=== PATIENT | female | born 2000 | race Two or more races ===

== ENCOUNTER 2019-12-10 16:16 | Emergency (ER) | payer OTHER ==
[2019-12-10 16:27] VITALS: BP 124/76; PULSE 96; TEMP 99.2; BMI 22.8
--- OUTSIDE RECORDS SUMMARY | 2019-12-10 17:12 | XMS ---
:2000 Author Organization [facility] Care Team Providers Name Role Phone KENNETH MCKENZIE Unavailable Unavailable Re-disclosure Warning The records that you are about to access may contain information from federally- assisted alcohol or drug abuse programs. If such information is present, then the following federally mandated warning applies: This information has been disclosed to you from records protected by federal confidentiality rules (42 CFR part 2). The federal rules prohibit you from making any further disclosure of this information unless further disclosure is expressly permitted by the written consent of the person to whom it pertains or as otherwise permitted by 42 CFR part 2. A general authorization for the release of medical or other information is NOT sufficient for this purpose. The Federal rules restrict any use of the information to criminally investigate or prosecute any alcohol or drug abuse patient.The records that you are about to access may contain highly sensitive health information, the redisclosure of which is protected by Article 27-F of the [facility] Public Health law. If you continue you may haveaccess to information: Regarding HIV / AIDS; Provided by facilities licensed or operated by the [facility] Office of Mental Health; or Provided by the [facility] Office for People With Developmental Disabilities. If such information is present, then the following [facility] mandated warning applies: This information has been disclosed to you from confidential records which are protected by state law. State law prohibits you from making any further disclosure of this information without the specific written consent of the person to whom it pertains, or as otherwise permitted by law. Any unauthorized further disclosure in violation of state law may result in a fine or [place] [facility] sentence or both. A general authorization for the release of medical or other information is NOT sufficient authorization for further disclosure. Encounters Encounter Providers Location Date Indications Data Source(s ) Outpatient Attender: KENNETH Leti 11/14/2018 [facility] [place] 03:13:00 [facility] KENNETHAdmitter: EDT KENNETH LUIS KENNETH Insurance Providers Payer name Policy type Policy ID Covered Covered constitution party's Policy P [place] / Coverage constitution party ID relationship to [employer] Inf ormation type sesay [place] [id number] [place] [id number] HMO O MVP/HHP O [id number] Problems, Conditions, and Diagnoses Code Display Name Description Problem Type Effective Dates Data Source(s) M54.5 Low back pain LOW BACK PAIN Diagnosis 11/14/2018 03:13:00 [facility] EDT [facility] Results ID Date Data Source [id number] 12/05/2019 10:00:00 PM EDT [facility] Name Value Range Interpretation Code Description Data Marielena rce(s) Supporting Document(s ) SARS-CoV-2 [facility] BY PCR This lab was ordered by TAY Parmar and reported by [facility]. Procedure
--- NOTE | 2019-12-10 17:19 | PDOC ---
History of Present Illness - General Chief Complaint: Chest Pain Stated Complaint: CHEST PAIN Time Seen by Provider: 12/10/19 16:35 History Source: Patient Exam Limitations: No Limitations - History of Present Illness Initial Comments: 12/10/19 17:14 Patient is a 19-year-old female with no past medical history who presents the ED with complaint of squeezing intermittent left chest pain that started yesterday after an endoscopy. The patient states that after the endoscopy she was cleared to go eat something and after she did she started to feel pain in her left chest. She states the pain is squeezing-like in nature and lasts a few minutes at a time. It waxes and wanes. She does admit to feeling short of breath when the pain happens. She states she was not given the results of the endoscopy. The patient states that she has had musculoskeletal chest pain in the past but it felt different. Today, when she woke up, she ate a soft breakfast cake for breakfast and states the pain again started immediately thereafter. She has not spoken to Dr. Munguia, who did her endoscopy yesterday. Past History - Medical History Allergies/Adverse Reactions: Allergies Allergy/AdvReac Type Severity Reaction Status Date / Time No Known Allergies Allergy Verified 12/10/19 17:09 COPD: No - Reproductive History Is Patient Now?: No - Psycho-Social/Smoking History Smoking History: Never smoked Have you smoked in the past 12 months: No - Substance Abuse Hx (Audit-C & DAST Scrn) How often the patient has a drink containing alcohol: Never Score: In Men: 4 or > Positive; In Women: 3 or > Positive: 0 Screen Result (Pos requires Nsg. Audit-10AR): Negative In the last yr the pt used illegal drug/Rx for NonMed reason: No Score: Yes response is considered Positive: 0 Screen Result (Positive result requires Nsg. DAST-10): Negative Review of Systems - Review of Systems Comments:: 12/10/19 17:19 - Review of Systems Able to Perform ROS?: Yes Constitutional: No: Fever, Chills, Loss of Appetite, Night Sweats, Weakness HEENTM: No: Eye Pain, Vision changes, Ear Pain, Throat Pain, Throat Swelling, Mouth Pain, Difficulty Swallowing Respiratory: No: Cough, Shortness of Breath, Wheezing, Sputum Production Cardiac (ROS): No: Chest Pain, Chest Tightness, Palpitations, Irregular Heart Beat, Edema; positive: Intermittent left chest squeezing-like pain ABD/GI: No: Nausea, Vomiting, Abdominal Pain, Diarrhea : No Dysuria, No Hematuria, No Frequency, No Urgency Musculoskeletal: No: Muscle Pain, Back Pain, Joint Pain, Muscle Weakness, Neck Pain Integumentary: No: Lesions, Rash Neurological: No: Headache, Numbness, Tingling, Weakness, Speech Difficulties *Physical Exam - Vital Signs Last Vital Signs Temp Pulse Resp BP Pulse Ox 99.2 F 96 H 18 124/76 100 12/10/19 16:21 12/10/19 16:21 12/10/19 16:21 12/10/19 16:21 12/10/19 16:21 - Physical Exam 12/10/19 17:20 - Physical Exam General Appearance: Nourished, Appropriately Dressed, No Distress HEENT: EOMI, Normal Voice, Hearing Grossly Normal Neck: Supple, No Lymphadenopathy (R), No Lymphadenopathy (L), No Rigidity, No Decreased range of motion Respiratory/Chest: Lungs Clear, Normal Breath Sounds. No Respiratory Distress, No Accessory Muscle Use Cardiovascular: Regular Rhythm, Regular Rate, S1, S2; no reproducible chest pain to palpation Gastrointestinal/Abdominal: Normal Bowel Sounds, Soft. Non-tender, No Guarding, No Rebound, No Rigidity; no reproducible abdominal pain to palpation Musculoskeletal: Normal Inspection. No Decreased Range of Motion Extremity: Normal Capillary Refill, Normal Inspection Integumentary: Normal Color, Dry. No Rash Neurologic: film color tester II-XII NML intact, Fully Oriented, Alert, Normal Mood/Affect, Normal Response ED Treatment Course - LABORATORY CBC & Chemistry Diagram: 12/10/19 17:00 12/10/19 17:00 - ADDITIONAL ORDERS Additional order review: 12/10/19 18:28 Laboratory Tests 12/10/19 12/10/19 12/10/19 17:00 17:00 17:00 PT with INR 13.30 H INR 1.13 H PTT (Actin FS) 30.8 D-Dimer 279 Magnesium Total Bilirubin AST ALT Alkaline Phosphatase Creatine Kinase Troponin I Total Protein Albumin Serum , Qual Negative 12/10/19 17:00 PT with INR INR PTT (Actin FS) D-Dimer Magnesium 2.2 Total Bilirubin 0.5 AST 13 L ALT 20 Alkaline Phosphatase 92 Creatine Kinase 49 Troponin I < 0.02 Total Protein 7.7 Albumin 4.2 Serum , Qual - RADIOLOGY Radiology Studies Ordered: Category Date Time Status CHEST PA & LAT [RAD] Stat Radiology 12/10/19 16:40 Taken Medical Decision Making - Medical Decision Making 12/10/19 17:20 Assessment: Patient is a 19-year-old female with left-sided squeezing chest pain that has been waxing and waning since yesterday after an endoscopy. Plan: -Saline lock ordered -Labs including a cardiac panel and d-dimer ordered -EKG done: Sinus rhythm at 96 bpm with some PVCs appreciated, flat T wave in lead III and V2. -If d-dimer positive will do a CTA chest -Chest x-ray ordered -Will reassess 12/10/19 17:26 Dr. Munguia paged. 12/10/19 17:42 D-dimer negative. CTA chest not indicated at this time. 12/10/19 17:[address] Munguia and he states that the endoscopy was completely normal on this patient. He states sometimes the endoscopy can cause esophageal spasm and the patient should be doubled up on her PPI until follow-up with him. He is also suggesting a cardiac work-up and he has been made aware that she is currently having a cardiac work-up in the emergency department. He states if the labs and cardiac work-up are within normal limits patient can be discharged from a GI standpoint. 12/10/19 18:26 The patient has been made aware that all of her labs are within normal limits. The patient has been advised to double up on her omeprazole which Dr. Munguia already prescribed her. She has been advised to follow-up with Dr. Matta and call tomorrow for sooner appointment. She will also be referred to cardiology for further evaluation and treatment. She understands and agrees with this koko atment plan and she is stable for discharge. Discharge - Discharge Information Problems reviewed: Yes Clinical Impression/Diagnosis: Atypical chest pain Condition: Stable Disposition: HOME - Follow up/Referral Referrals: Raven Euceda MD [Primary Care Provider] - Jean Claude Ceballos MD [Staff Physician] - Call tomorrow - Patient Discharge Instructions Patient Printed Discharge Instructions: DI for Atypical Chest Pain Additional Instructions: Get plenty of rest and drink plenty of fluids. Be sure to not eat or drink in large amounts at a time as this can cause the pain. Take the omeprazole twice daily as instructed by Dr. Munguia. Follow-up with cardiology and call tomorrow for an appointment and possibly an outpatient echo. - Post Discharge Activity
[2019-12-10 17:21] LABS: BASO % 0.3 % (0-2.0); EOS % 0.7 % (0-4.5); HEMATOCRIT 44.6 % (32.4-45.2); HEMOGLOBIN 15.6 GM/dL (10.7-15.3); LYMPH % 37.2 % (8-40); MCH 30.7 pg (25.7-33.7); MEAN CELL VOLUME 87.5 fl (80-96); MEAN PLT VOLUME 8.4 fl (7.5-11.1); MONO % 3.4 % (3.8-10.2); NEUT % 58.4 % (42.8-82.8); PLATELET COUNT 243 K/MM3 (134-434); RDW 13.1 % (11.6-15.6); WHITE BLOOD COUNT 6.3 K/mm3 (4.0-10.0)
[2019-12-10 17:29] LABS: INR 1.13 (0.83-1.09); PROTHROMBIN TIME (PATIENT) 13.3 SEC (9.7-13.0)
[2019-12-10 17:32] LABS: ACTIVATED PTT 30.8 SECONDS (25.2-36.5)
[2019-12-10 18:03] LABS: ALBUMIN 4.2 g/dl (3.4-5.0); ANION GAP 6 MMOL/L (8-16); BILIRUBIN,TOTAL 0.5 mg/dL (0.2-1); BLOOD UREA NITROGEN 9.7 mg/dL (7-18); CALCIUM 9.4 mg/dL (8.5-10.1); CHLORIDE 105 mmol/L (98-107); CO2 28 mmol/L (21-32); CREATININE 0.7 mg/dL (0.55-1.3); GLUCOSE,RANDOM 109 mg/dL (74-106); MAGNESIUM 2.2 mg/dL (1.8-2.4); POTASSIUM 3.7 mmol/L (3.5-5.1); SGOT/AST 13 U/L (15-37); SGPT/ALT 20 U/L (13-61); SODIUM 139 mmol/L (136-145); TOT PROT 7.7 g/dl (6.4-8.2)
[2019-12-10 18:06] LABS: ALK PHOS 92 U/L (45-117)
--- NOTE | 2019-12-12 13:37 | EKG ---
Test Reason : Blood Pressure : / mmHG Vent. Rate : 096 BPM Atrial Rate : 096 BPM P-R Int : 128 ms QRS Dur : 070 ms QT Int : 324 ms P-R-T Axes : 071 060 055 degrees QTc Int : 409 ms SINUS RHYTHM WITH PREMATURE SUPRAVENTRICULAR COMPLEXES POSSIBLE LEFT ATRIAL ENLARGEMENT CANNOT RULE OUT ANTEROSEPTAL INFARCT , AGE UNDETERMINED ABNORMAL ECG NO PREVIOUS ECGS AVAILABLE Confirmed by DESTINY WHITTEN, GRZEGORZ ([id number]) on 12/12/2019 1:37:23 PM Referred By: Confirmed By:GRZEGORZ DIXON MD
== END 2019-12-10 18:30 | disposition home or self-care (01) ==
LOC: JERFT 16:16
DX: R07.9 Chest pain, unspecified (principal)
CPT/HCPCS: 36415; 71046-TC-FY; 80053; 82550; 83735; 84484; 84703; 85025; 85379; 85610; 85730; 93005; 93010; 99285-25